=== PATIENT | female | born 1965 | race Caucasian/White ===

== ENCOUNTER 2019-03-18 18:06 | Emergency (ER) | payer MEDICAID ==
[~2019-03-18] VITALS: Ht 162.6 cm; Wt 81.4 kg
[2019-03-18 18:07] VITALS: BP 117/73
[2019-03-18] MEDS ORDERED: LATU1TAB PO (18:16)
[2019-03-18] MEDS ORDERED: WELLTAB38 PO (18:16)
[2019-03-18] MEDS ORDERED: HYDR1CAP25 PO (18:16)
[2019-03-18] MEDS ORDERED: ZYPR5TAB2 PO (18:16)
[2019-03-18] MEDS ORDERED: VALA1TAB2 PO (19:01)
[2019-03-18] MEDS ORDERED: valACYclovir HCL 500 MG TAB PO ONE (19:15)
== END 2019-03-18 19:17 | disposition home or self-care (01) ==
LOC: M ED 18:06
DX: B02.9 Zoster without complications (principal); F41.9 Anxiety disorder, unspecified; F32.9 Major depressive disorder, single episode, unspecified; Z79.899 Other long term (current) drug therapy

== ENCOUNTER → 2019-03-19 | Outpatient (CLI) | payer MEDICAID ==
[~2019-03-19] MED LIST: HYDR1CAP25 PO; LATU1TAB PO; VALA1TAB2 PO; WELLTAB38 PO; ZYPR5TAB2 PO
[2019-03-19 11:43] LABS: APPEARANCE, URINE CLEAR (CLEAR); BACTERIA, URINE AUTO 1+ (NEGATIVE); BILIRUBIN, URINE AUTO NEGATIVE (NEGATIVE); BLOOD, URINE BLOOD NEGATIVE (NEGATIVE); COLOR, URINE STRAW (YELLOW); GLUCOSE, URINE (UA) AUTO NEGATIVE (NEGATIVE); KETONE, URINE AUTO NEGATIVE (NEGATIVE); LEUKOCYTE ESTERASE, URINE AUTO NEGATIVE (NEGATIVE); MUCUS, URINE SMALL (NEGATIVE); NITRITE, URINE AUTO NEGATIVE (NEGATIVE); PROTEIN, URINE AUTO NEGATIVE (NEGATIVE); RBC, URINE AUTO 3 /HPF (0-3); SPECIFIC GRAVITY URINE AUTO 1.009 (1.002-1.035); SQUAMOUS EPITHELIAL CELL UR AU 5 /HPF (0-6); UROBILINOGEN, URINE AUTO 0.2 mg/dL (0.0-2.0); WBC, URINE AUTO 2 /HPF (0-3)
[2019-03-19 11:47] LABS: BASO # 0.1 10^3/uL (0.0-0.2); BASO % 0.8 % (0.0-1.0); EOS # 0.2 10^3/uL (0.0-0.50); EOS % 2.7 % (0.0-3.0); HEMATOCRIT 42.9 % (36.0-47.0); HEMOGLOBIN 14.6 g/dl (12.0-15.5); LYMPH # 1.9 10^3/uL (1.5-4.5); LYMPH % 29.8 % (24.0-44.0); MEAN CORPUSCULAR HEMOGLOBIN 30.2 pg (27.0-33.0); MEAN CORPUSCULAR VOLUME 88.6 fl (80.0-96.0); MONO # 0.4 10^3/uL (0.0-0.8); MONO % 6.2 % (0.0-5.0); NEUTROPHILS # 3.8 10^3/uL (1.8-7.7); NEUTROPHILS % 59.7 % (36.0-66.0); PLATELET COUNT, AUTOMATED 196 10^3/uL (150-450); RED BLOOD COUNT 4.84 10^6/uL (4.00-5.40); WHITE BLOOD COUNT 6.3 10^3/uL (4.0-10.0)
[2019-03-19 12:10] LABS: ALBUMIN 4.3 GM/DL (3.2-5.2); ALT/SGPT 19 U/L (12-78); BILIRUBIN,TOTAL 0.2 MG/DL (0.2-1.0); BLOOD UREA NITROGEN 14 MG/DL (7-18); CALCIUM LEVEL 9.7 MG/DL (8.5-10.1); CARBON DIOXIDE LEVEL 25 MEQ/L (21-32); CHLORIDE LEVEL 105 MEQ/L (98-107); CREATININE FOR GFR 0.78 MG/DL (0.55-1.30); GLOMERULAR FILTRATION RATE > 60.0 (>51); GLUCOSE, FASTING 80 MG/DL (70-100); POTASSIUM SERUM 3.9 MEQ/L (3.5-5.1); SODIUM LEVEL 139 MEQ/L (136-145); TOTAL PROTEIN 7.8 GM/DL (6.4-8.2)
[2019-03-19 13:20] LABS: HEPATITIS B SURFACE ANTIBODY POSITIVE (POSITIVE)
[2019-03-19 13:31] LABS: HEPATITIS B SURFACE ANTIGEN NEGATIVE (NEGATIVE)
[2019-03-22 14:24] LABS: HEPATITIS A IgG TOTAL Positive (Negative); HEPATITIS C QUANTITATION HCV Not Detected IU/mL (.)
== END ==
LOC: M LAB 10:54
PROVIDERS: ATTEND Physician Assistant Medical
DX: Z02.2 Encounter for examination for admission to residential institution (principal); B18.2 Chronic viral hepatitis C; B16.9 Acute hepatitis B without delta-agent and without hepatic coma; B15.9 Hepatitis A without hepatic coma

== ENCOUNTER 2019-06-04 13:44 | Emergency (ER) | payer MEDICAID, OTHER ==
[~2019-06-04] VITALS: Ht 160 cm; Wt 81.0 kg
[~2019-06-04 13:44] MED LIST changes: -VALA1TAB2 PO; +VALA1TAB64 PO
[2019-06-04] MEDS ORDERED: GABA-843 (13:53)
[2019-06-04] MEDS ORDERED: CLON-412 (13:53)
[2019-06-04] MEDS ORDERED: TIZA4TAB4 (13:53)
[2019-06-04] MEDS ORDERED: SUBO8MIS (13:53)
[2019-06-04] MEDS ORDERED: TRAZ-252 (13:53)
[2019-06-04] MEDS ORDERED: MELA5CAP2 (13:53)
[2019-06-04] MEDS ORDERED: BUPREN/NALOX (13:53)
[2019-06-04] MEDS ORDERED: SENN-83 (13:53)
[2019-06-04 15:30] VITALS: BP 130/75
[2019-07-20] MEDS ORDERED: BUPR300T92 (16:59)
== END 2019-06-04 15:34 | disposition home or self-care (01) ==
LOC: M ED 13:44
DX: K92.9 Disease of digestive system, unspecified (principal); L30.9 Dermatitis, unspecified; Z79.899 Other long term (current) drug therapy

== ENCOUNTER → 2019-06-15 | Outpatient (CLI) | payer OTHER ==
[~2019-06-15] MED LIST changes: +BUPREN/NALOX; +CLON-412; +GABA-843; +MELA5CAP2; +SENN-83; +SUBO8MIS; +TIZA4TAB4; +TRAZ-252; +VALA1TAB2 PO; -VALA1TAB64 PO
--- NOTE | 2019-06-15 16:39 | REP ---
PA and lateral chest: There are no comparisons. The lung bhandari are clear. The cardiac size is normal. The owen, mediastinum, and skeletal structures are unremarkable. Is a cervical spine stabilization plate. Impression: Negative PA and lateral chest. Electronically Signed by Aren Street MD 06/15/2019 04:30 P
== END ==
LOC: M RAD 13:16
PROVIDERS: ATTEND Physician Assistant Medical
DX: G47.00 Insomnia, unspecified (principal)

== ENCOUNTER 2019-07-20 15:51 | Emergency (ER) | payer OTHER ==
[~2019-07-20] VITALS: Ht 160 cm; Wt 80.9 kg
[2019-07-20] MEDS ORDERED: BUPR300T34 (16:59)
[2019-07-20] MEDS ORDERED: PYRI1TAB5 PO (18:48)
--- NOTE | 2019-07-20 19:12 | REPVR ---
PROCEDURE INFORMATION: Exam: US Retroperitoneal Limited, Kidneys Exam date and time: 07/20/2019 6:32 PM Clinical history: 54 years old, female; Abdominal pain; Additional info: Right flank pain, bladder pressure TECHNIQUE: Imaging protocol: Real-time ultrasound of the retroperitoneum with image documentation. Examination was focused on the kidneys. COMPARISON: No relevant prior studies available. FINDINGS: Right kidney: No stones. No hydronephrosis. Unremarkable. Left kidney: No stones. No hydronephrosis. Unremarkable. IMPRESSION: No acute abnormality. Electronically signed by: Aristeo Iniguez On 07/20/2019 19:12:23 PM
--- NOTE | 2019-07-20 19:13 | REPVR ---
PROCEDURE INFORMATION: Exam: US Pelvis Limited, Transabdominal Exam date and time: 07/20/2019 6:32 PM Clinical history: 54 years old, female; Pelvic pain; Additional info: Right flank pain, bladder pressure TECHNIQUE: Imaging protocol: Real-time transabdominal pelvic ultrasound with image documentation. Limited exam. COMPARISON: No relevant prior studies available. FINDINGS: Bladder: No post void residual. Bilateral ureteral jets are visualized. Normal bladder wall thickness. IMPRESSION: Unremarkable. Electronically signed by: Aristeo Iniguez On 07/20/2019 19:13:09 PM
[2019-07-20 19:28] VITALS: BP 101/56
== END 2019-07-20 19:40 | disposition home or self-care (01) ==
LOC: M ED 15:51
DX: R30.0 Dysuria (principal); R35.0 Frequency of micturition; R39.15 Urgency of urination; F41.9 Anxiety disorder, unspecified; F32.9 Major depressive disorder, single episode, unspecified; Z79.899 Other long term (current) drug therapy